=== PATIENT | male | born 1975 | race Caucasian/White ===

== ENCOUNTER 2017-03-14 18:22 | Emergency (ER) | payer OTHER ==
[~2017-03-14] VITALS: Ht 175.3 cm; Wt 81.7 kg
[2017-03-14] MEDS ORDERED: RED YEAST RICE30 GM MC (19:10)
[2017-03-14] MEDS ORDERED: HYDROCODONE-AP1 EAC6 PO (21:04)
[2017-03-14 21:23] VITALS: BP 150/86
== END 2017-03-14 21:30 | disposition home or self-care (01) ==
LOC: ER 18:22
DX: S61.211A Laceration without foreign body of left index finger without damage to nail, initial encounter (principal); S61.213A Laceration without foreign body of left middle finger without damage to nail, initial encounter; S66.123A Laceration of flexor muscle, fascia and tendon of left middle finger at wrist and hand level, initial encounter; W45.8XXA Other foreign body or object entering through skin, initial encounter; Y93.89 Activity, other specified; Y92.89 Other specified places as the place of occurrence of the external cause; Y99.0 Civilian activity done for income or pay